=== PATIENT | female | born 1985 | race Caucasian/White ===

== ENCOUNTER 2023-12-15 08:52 | Day surgery (SDC) | payer MEDICARE, MEDICAID ==
[~2023-12-15] VITALS: Ht 170.2 cm; Wt 76.1 kg
[~2023-12-15 08:52] MED LIST: Ondansetron 4 MG/2 ML VIAL IV PRN
[2023-12-15] MEDS ORDERED: PROTONIX 40MG T40 MG PO (09:43)
[2023-12-15] MEDS ORDERED: ZOFRAN ODT4 MG PO (09:43)
[2023-12-15] MEDS ORDERED: VYVANSE50 MG PO (09:43)
[2023-12-15] MEDS ORDERED: SONATA 10MG10 MG (09:44)
[2023-12-15] MEDS ORDERED: MELATONIN5 M1 SL (09:45)
[2023-12-15] MEDS ORDERED: LR 1,000 ML IV SCH (10:00)
[2023-12-15] MEDS ORDERED: Lidocaine PF 2% (20 MG/ML) 5 ML VIAL ONE (10:26)
[2023-12-15 11:10] VITALS: BP 112/87; PULSE 73; TEMP 97.6
[2023-12-15 11:15] VITALS: BP 112/87; PULSE 76
[2023-12-15 11:30] VITALS: BP 113/82; PULSE 67
[2023-12-15 11:45] VITALS: BP 112/76; PULSE 71
[2023-12-15 12:00] VITALS: BP 107/84; PULSE 84
--- NOTE | 2023-12-15 12:14 | NUR ---
1110- PATIENT RETURNS TO [facility] [place] [facility] VIA CART. PT AWAKE AND ALERT. RESPIRATIONS UNLABORED. AMBULATED TO RECLINER CHAIR WITH 2:1 SBA. PT DENIES NAUSEA OR ABDOMINAL PAIN. HOOKED UP TO MONITOR AND VS OBTAINED. CALL LIGHT AT SIDE AND FRIEND PRESENT. 1117- PATIENT TOLERATING COFFEE AND MUFFIN X2 WITHOUT NAUSEA OR DIFFICULTY SWALLOWING. 1132- D/C INSTRUCTIONS REVIEWED WITH PATIENT. PT VERBALIZED UNDERSTANDING AND A COPY OF INSTRUCTIONS PROVIDED IN D/C FOLDER. 1138- PATIENT DRESSES SELF. 1152- DR. KAPLAN IN ROOM SPEAKING WITH PATIENT. 1214- PATIENT DISCHARGED FROM UNIT VIA W/C TO A PERSONAL VEHICLE. PT LEFT HOSPITAL IN STABLE CONDITION.
[2023-12-15 14:34] VITALS: BP 120/77; PULSE 97; TEMP 97.5
--- NOTE | 2023-12-15 14:37 | NUR ---
0917 Patient ambulatory to bay [facility] with a steady gait, breathing even and unlabored. Patient is alert and orienyted, accompanied by her friend. Consents reviewed and signed by patient. IV established. LR infusing via gravity at KVO. Call light in reach. Warm blanket provided.
== END 2023-12-15 12:14 | disposition home or self-care (01) ==
LOC: SDCO 08:52
DX: K20.0 Eosinophilic esophagitis (principal); R19.4 Change in bowel habit; R19.7 Diarrhea, unspecified; R68.81 Early satiety; K64.8 Other hemorrhoids; R19.5 Other fecal abnormalities; R10.9 Unspecified abdominal pain; Z79.899 Other long term (current) drug therapy
CPT/HCPCS: J2704; J7120

== ENCOUNTER 2024-02-12 08:44 | Day surgery (SDC) | payer MEDICARE, MEDICAID ==
[~2024-02-12] VITALS: Ht 170.2 cm; Wt 75.0 kg
[~2024-02-12 08:44] MED LIST changes: +LR 1,000 ML IV SCH; +MELATONIN5 M1 SL; +PRIL40 PO; +SONATA 10MG10 MG; +VYVANSE50 MG PO; +ZOFRAN ODT4 MG PO
[2024-02-12 09:26] VITALS: BP 111/75; PULSE 68; TEMP 97.9
[2024-02-12] MEDS ORDERED: Lidocaine PF 2% (20 MG/ML) 5 ML VIAL ONE (10:50)
[2024-02-12 11:10] VITALS: BP 97/75; PULSE 77; TEMP 97.9
[2024-02-12 11:32] VITALS: BP 115/74; PULSE 84
--- NOTE | 2024-02-12 12:22 | NUR ---
1105 PATIENT RETURNS TO [facility] [place] [facility] VIA CART. PT AWAKE AND ALERT. RESPIRATIONS UNLABORED. AMBULATED TO RECLINER CHAIR WITH 2:1 SBA. PT DENIES NAUSEA OR ABDOMINAL PAIN. HOOKED UP TO MONITOR AND VS OBTAINED. CALL LIGHT AT SIDE AND FAMILY PRESENT. 1115 PATIENT TOLERATING COFFE, WATER AND MUFFIN WITHOUT NAUSEA OR DIFFICULTY SWALLOWING (EGD ONLY). 1125 IN ROOM SPEAKING WITH PATIENT. 1132 D/C INSTRUCTIONS REVIEWED WITH PATIENT. PT VERBALIZED UNDERSTANDING AND A COPY OF INSTRUCTIONS PROVIDED IN D/C FOLDER. 1135 PATIENT DRESSES SELF. 1140 PATIENT DISCHARGED FROM UNIT VIA W/C TO A PERSONAL VEHICLE. PT LEFT HOSPITAL IN STABLE CONDITION.
[2024-02-12 12:49] VITALS: BP 85/73; PULSE 78
== END 2024-02-12 11:35 | disposition still patient (30) ==
LOC: SDCO 08:44
DX: K20.0 Eosinophilic esophagitis (principal); Z79.899 Other long term (current) drug therapy
CPT/HCPCS: J2704; J7120